=== PATIENT | female | born 1950 | race Caucasian/White ===

== ENCOUNTER → 2024-03-23 11:04 | Outpatient (CLI) | payer MEDICARE, SELFPAY ==
[2024-03-26 10:23] LABS: Fecal Immunochemical Test Negative (Negative)
== END ==
PROVIDERS: PCP Family Medicine; Referring Provider Family Medicine; Visit Provider Family Medicine
DX: Z12.11 Encounter for screening for malignant neoplasm of colon (principal)
CPT/HCPCS: 82274

== ENCOUNTER → 2024-07-17 09:15 | Outpatient (CLI) | payer MEDICARE, SELFPAY ==
--- NOTE | 2024-07-17 09:16 | DI.ECHO.S_ITS ---
[facility] : : [id number] : : [place] : : [id number] : : Phone: [phone] Echocardiogram Report + + :Name: ELISEO RUELAS Study Date: 07/17/2024 Height: 63 in : :[facility] ReadingLocation: Weight: 125 lb : : Gender: Female BSA: 1.6 m2 : :: 1950 Age: 74 yrs BP: 173/75 mmHg: :Reason For Study: SINUS BRADYCARDIA : :Ordering Physician: YAZ, : :DIAMANTE Performed By: Tyshawn Welch : :Referring: DIAMANTE MUKHERJEE : + + Interpretation Summary The ejection fraction is estimated to be 60-65%. Diastolic parameters suggest probable normal left ventricular diastolic function and normal filling pressures. The right ventricle is normal in size and function. The right atrium is mildly dilated. There is mild tricuspid regurgitation. The right ventricular systolic pressure is estimated to be at least 25 mmHg based on an estimated right atrial pressure of 3 mm Hg. The patient was in sinus bradycardia with heart rates between 43-47 bpm during the exam. Procedure: A two-dimensional transthoracic echocardiogram with color flow and Doppler was performed. The study quality was technically good. There is no prior echocardiogram noted for this patient. The patient was in sinus bradycardia with heart rates between 43-47 bpm during the exam. Left Ventricle: The left ventricle is normal in size. There is normal left ventricular wall thickness. There is no ventricular septal defect visualized. The ejection fraction is estimated to be 60-65%. There are no focal wall motion abnormalities. Diastolic parameters suggest probable normal left ventricular diastolic function and normal filling pressures. Right Ventricle: The right ventricle is normal in size and function. Atria: The left atrial size is normal. The right atrium is mildly dilated. There is no Doppler evidence for an interatrial shunt. Mitral Valve: The mitral valve leaflets appear normal. There is no evidence of stenosis, fluttering, or prolapse. There is no mitral regurgitation noted. Aortic Valve: The aortic valve is trileaflet. The aortic valve opens well. There is no aortic valve stenosis. No aortic regurgitation is present. Tricuspid Valve: The tricuspid valve leaflets are thin and pliable. There is mild tricuspid regurgitation. The right ventricular systolic pressure is estimated to be at least 25 mmHg based on an estimated right atrial pressure of 3 mm Hg. Pulmonic Valve: The pulmonic valve leaflets are thin and pliable; valve motion is normal. There is no pulmonic valvular regurgitation. Great Vessels: The aortic root is normal size. The dimensions of the ascending aorta are normal. The pulmonary artery is normal size. The IVC is of normal diameter and collapses greater than 50% with a sniff. This suggests a low right atrial pressure of 3 mm Hg. Pericardium/ Pleura There is no pericardial effusion. There is no pleural effusion. MMode/2D Measurements & Calculations LVIDd: 4.4 cm LVOT diam: 1.9 cm LVIDs: 2.9 cm Ao root diam: 2.6 cm FS: 32.9 % asc Aorta Diam: 3.0 cm EPSS: 0.52 cm Ao Arch Diam (Prox Trans): 2.2 cm IVSd: 0.81 cm LVPWd: 0.69 cm LV upton. diameter/BSA (cm/m^2): 2.8 LV sys. diameter/BSA (cm/m^2): 1.8 LA A2 area: 14.0 cm2 RA long axis: 5.2 cm LA A4 area: 17.3 cm2 RA area: 18.1 cm2 LA length (vol): 5.0 cm RA vol: 53.4 ml LA vol: 41.4 ml RA : 33.7 ml/m2 LA vol index: 26.2 ml/m2 IVC diam: 1.8 cm RVD1 (basal): 3.2 cm RVD2 (mid): 2.2 cm TAPSE: 2.5 cm Doppler Measurements & Calculations Ao V2 max: 155.9 cm/sec LVOT Max Tony: 121.9 cm/sec Ao V2 mean: 107.7 cm/sec LV V1 max P.9 mmHg Ao max P.7 mmHg LV V1 VTI: 26.9 cm Ao mean P.2 mmHg RENATA(I,D): 2.0 cm2 Ao V2 VTI: 38.7 cm RENATA(V,D): 2.2 cm2 sev ratio: 0.69 RENATA indexed to BSA (cm^2/m^2): 1.2 MV E max tony: 68.2 cm/sec TR max tony: 254.6 cm/sec MV A max tony: 53.5 cm/sec TR max P.9 mmHg MV E/A: 1.3 PA V2 max: 96.2 cm/sec Med Peak E' Tony: 5.0 cm/sec PA V2 mean: 67.1 cm/sec E/E' med: 13.6 PA mean P.0 mmHg Lat Peak E' Tony: 5.9 cm/sec PA pr(Accel): 31.0 mmHg E/E' lat: 11.6 E/e' average: 12.6 MV dec time: 0.31 sec [facility] 76.1 ml Reading Physician:03:11 PM
== END ==
LOC: ECHO 09:16
PROVIDERS: PCP Family Medicine; Referring Provider Family Medicine; Visit Provider Family Medicine
DX: R00.1 Bradycardia, unspecified (principal); E03.9 Hypothyroidism, unspecified; R53.83 Other fatigue; I51.7 Cardiomegaly; I07.1 Rheumatic tricuspid insufficiency
CPT/HCPCS: 93306

== ENCOUNTER → 2024-09-25 10:02 | Outpatient (CLI) | payer MEDICARE, SELFPAY ==
--- NOTE | 2024-09-25 10:04 | DI.RAD.S_ITS ---
PROCEDURE: XR FINGER LT MIN 2V INDICATIONS: left finger trauma TECHNIQUE: AP hand, 3 views of the 4th finger(s) acquired. COMPARISON: None. FINDINGS: Bones: No fractures or dislocations. No suspicious bony lesions. Soft tissues: No suspicious soft tissue calcifications. IMPRESSION: No acute bony abnormality. Dictated by: David Romero M.D. on 09/27/2024 at 4:58 Approved by: David Romero M.D. on 09/27/2024 at 5:35
--- NOTE | 2024-09-25 17:51 | DI.NM.S_ITS ---
DATE OF SERVICE: 09/25/2024 EXERCISE TREADMILL STRESS TEST PROCEDURE: Exercise treadmill stress test without imaging. ORDERING PROVIDER: Loc Arce MD. INDICATIONS: The patient is a 74-year-old female with sinus bradycardia. FINDINGS: 1. The patient was able to exercise for 7 minutes 49 seconds on a standard [place] protocol suggesting excellent exercise capacity with an CARLYN of -38%, achieving 10.1 METS. 2. She had a normal heart rate response to exercise with a resting heart rate of 45 bpm, increasing to a maximum of 130 bpm (88% of her predicted maximum). She had a mild hypertensive blood pressure response to exercise with a resting blood pressure of 160/90 increasing to a maximum of 200/110. 3. Her resting ECG showed sinus bradycardia at 42 bpm with an occasional PAC but normal ST segments. There are no significant ST- segment shifts and resolution of the PACs except at peak exercise when there are occasional PACs in couplets and triplets and rare isolated PVCs but no complex ectopy. IMPRESSION: 1. Normal exercise treadmill stress test for ischemia. 2. Excellent exercise capacity without angina. 3. Sinus bradycardia at rest with an appropriate heart rate response to exercise. There were occasional PACs and rare PVCs. 4. Mild hypertensive blood pressure response to exercise. Jaqui Pratt - FREDY/anibal/DAVINA doc#: [id number]/job#: [id number] dd: 09/25/2024 17:33:00 dt: 09/25/2024 17:44:00 DICTATING /COPIES TO: Emmanuel Alexander MD; Loc Arce MD COPIES MNE: HA;
== END ==
PROVIDERS: PCP Family Medicine; Referring Provider Family Medicine; Visit Provider Internal Medicine Cardiovascular Disease
DX: R00.1 Bradycardia, unspecified (principal); M79.645 Pain in left finger(s)
CPT/HCPCS: 73140; 93017

== ENCOUNTER → 2024-11-05 09:58 | Outpatient (CLI) | payer MEDICARE, SELFPAY ==
[2024-11-05 10:24] LABS: Add Manual Diff / Slide Review NO; Hematocrit 40.9 % (36-46); Hemoglobin 13.8 g/dL (12.0-16.0); Lymphocytes Absolute Auto 1600 /uL (1100-4500); Mean Corpuscular HGB Conc 33.6 % (30-36); Mean Corpuscular Hemoglobin 30.5 PG (26-34); Mean Corpuscular Volume 90.8 fL (80-100); Platelet Count 243 X10^3/uL (150-400)
[2024-11-05 10:40] LABS: Alanine Aminotransferase 14 IU/L (<35); Albumin 4.2 g/dL (3.5-5.0); Albumin Globulin Ratio 1.4 (1.0-2.8); Alkaline Phosphatase 52 U/L (38-126); Blood Urea Nitrogen 13 mg/dL (7-17); Calcium 9.4 mg/dL (8.4-10.2); Carbon Dioxide 27 mmol/L (22-32); Chloride 96 mmol/L (98-107); Cholesterol 212 mg/dL (140-199); Estimated Glomerular Filt Rate > 60 mL/min (>60); Globulin 2.9 g/dL (1.7-4.1); Glucose 92 mg/dL (70-99); HDL Cholesterol 82 mg/dL (40-60); HEMOLYSIS < 15 (0-50); Potassium 4.1 mmol/L (3.4-5.1); Sodium 130 mmol/L (137-145); Total Protein 7.1 g/dL (6.3-8.2); Triglycerides 68 mg/dL (35-150)
[2024-11-05 10:57] LABS: Vitamin D 25 Hydroxy (D3) 90.1 ng/mL (30.0-100.0)
[2024-11-05 11:11] LABS: TSH w/ Reflex to FT4 2.82 uIU/mL (0.47-4.68)
== END ==
PROVIDERS: PCP Family Medicine; Referring Provider Family Medicine; Visit Provider Family Medicine
DX: I10 Essential (primary) hypertension (principal); M85.80 Other specified disorders of bone density and structure, unspecified site; E78.00 Pure hypercholesterolemia, unspecified; Z13.220 Encounter for screening for lipoid disorders; Z76.89 Persons encountering health services in other specified circumstances; E03.9 Hypothyroidism, unspecified; Z78.0 Asymptomatic menopausal state
CPT/HCPCS: 36415; 80053; 80061; 82306; 84443; 85025

== ENCOUNTER → 2024-12-17 12:03 | Outpatient (CLI) | payer MEDICARE, SELFPAY ==
[2024-12-18 14:40] LABS: Osmolality, Serum 284 mOsmol/kg (280-301)
== END ==
PROVIDERS: PCP Family Medicine; Referring Provider Family Medicine; Visit Provider Family Medicine
DX: E87.1 Hypo-osmolality and hyponatremia (principal)
CPT/HCPCS: 36415; 83930; 84300

== ENCOUNTER → 2025-01-28 12:04 | Outpatient (CLI) | payer MEDICARE, SELFPAY ==
[2025-01-28 13:32] LABS: HEMOLYSIS < 15 (0-50); Iron 84 ug/dL (37-170)
[2025-01-28 13:34] LABS: Magnesium 2.1 mg/dL (1.6-2.3); Sodium 132 mmol/L (137-145)
[2025-01-28 13:42] LABS: Percent Iron Saturation 28 % (15-50); Total Iron Binding Capacity 298 ug/dL (265-497); Transferrin 265 mg/dL (206-381)
[2025-01-28 14:55] LABS: Vitamin B12 Reflex MMA if <400 771 pg/mL (239-931)
== END ==
PROVIDERS: PCP Family Medicine; Referring Provider Family Medicine; Visit Provider Family Medicine
DX: R20.2 Paresthesia of skin (principal); E87.1 Hypo-osmolality and hyponatremia
CPT/HCPCS: 36415; 82607; 83540; 83550; 83735; 83935; 84295